=== PATIENT | male | born 1960 | race African-American/Black ===

== ENCOUNTER 2016-09-28 22:09 | Inpatient (IN) ==
[2016-09-28 23:50] LABS: MANUAL DIFF NEEDED? NO
[2016-09-28 23:52] LABS: EOS# 0.28 X1000 (0.0-0.7); EOS% 5.1 % (0.0-10.0); HEMATOCRIT 33.8 % (42.0-52.0); LYMPH# 0.74 X1000 (1.2-3.4); LYMPH% 13.4 % (20.5-51.1); MCH 29.6 PG (27-31); MCHC 32.5 g/dL (33-37); MCV 90.9 FL (81-99); MONO# 0.54 X1000 (0.11-0.59); MONO% 9.8 % (1.7-9.3); MPV 9.7 FL (7.4-10.4); NEUT% 67.7 % (42.2-75.2); PLT 118 X1000 (130-400); RBC 3.72 XMIL (4.7-6.1)
[2016-09-29 00:14] LABS: TOTAL BILIRUBIN 0.38 mg/dL (0.20-1.00); TOTAL PROTEIN 7.5 g/dL (6.3-8.3)
--- NOTE | 2016-09-29 00:19 | ED EKG INTERP ---
This chart was entered by Antonino Phillips Scribe, acting as scribe for Harvinder Lilly MD. EKG Interpretation - EKG Time of EKG reading by physician:: 22:09 EKG Read and Signed by:: Harvinder Lilly EKG Interpretation (*Must complete 3 of following elements*): Abnormal ( Possible left atrial enlargement; Left axis deviation; Prolonged QT) Rate: 79 Rhythm: NSR This chart was documented by the indicated scribe, (Antonino Phillips Scribe) and accurately reflects the services I performed and decisions made by meBrielle Kevin F., MD, as attested by the provider's signature.
--- NOTE | 2016-09-29 00:20 | PROVIDER DOCUMENTATION ---
This chart was entered by Antonino Phillips Scribe, acting as scribe for Alan Deng PA. HPI-Respiratory General - General Chief Complaint: Shortness of Breath Stated Complaint: SOB Time Seen by Provider: 09/28/16 22:34 Source: patient Allergies/Adverse Reactions: Patient Allergies Allergy/AdvReac Type Severity Reaction Status Date / Time No Known Allergies Allergy Verified 09/28/16 22:24 Home Medications: Home Medication List Medication Instructions Recorded Confirmed Last Taken Type Clonidine [Catapres] 0.2 mg PO DAILY 04/14/13 09/28/16 09/28/16 08:00 History Nifedipine [Procardia Xl] 60 mg PO DAILY 04/14/13 09/28/16 09/28/16 08:00 History Omeprazole 20 mg PO DAILY 04/14/13 09/28/16 09/28/16 07:00 History - History of Present Illness-Resp Nature of Presenting Problem: Pt is a 56 yom, dialysis pt, who presents to ER with CC of shortness of breath. Pt reports that he had dialysis today, but is still feeling short of breath. PT reports that he had a paracentesis performed in 2016 and states that his abdomen has become steadily more distended. Pt requesting paracentesis tonight. Quality of Pain: reports: none Severity in ED: reports: mild, moderate Onset/Duration: reports: unsure, just prior to arrival Timing: reports: still present Associated Symptoms: reports: shortness of breath, short of breath. denies: chest pain/soreness, cough, fever/chills, wheezing Similar Symptoms Previously?: Yes Recently seen or treated by another doctor?: Yes Review of Systems - Adult - REVIEW OF SYSTEMS - ADULT Constitutional: denies: chills, fever, fatique, night sweats, weight gain, weight loss Eyes: reports: no symptoms reported Ears, Nose, Mouth & Throat: reports: no symptoms reported Cardiovascular: reports: edema. denies: chest pain, heart murmur, irregular heart rate, orthopnea, palpitations, poor circulation, PND, syncope Respiratory: reports: shortness of breath. denies: chronic cough, cough, dyspnea on exertion, excessive sputum production, hemoptysis, pleurisy, wheezing Gastrointestinal: reports: other (distended). denies: abdominal pain, hematemesis, diarrhea, nausea, vomiting Genitourinary: reports: no symptoms reported Musculoskeletal: reports: no symptoms reported Integumentary: reports: no symptoms reported Neurological: reports: no symptoms reported Psychiatric: reports: no symptoms reported Endocrine: reports: no symptoms reported Hematologic/Lymphatic: reports: no symptoms reported Allergic/Immunologic: reports: no symptoms reported All Other Systems: Reviewed and Negative Past History - Adult - PAST MEDICAL HISTORY-ADULT Review of Records: reports: Nursing Assessment Review, Medications Reviewed - IMMUNIZATION STATUS Childhood Immunizations: See Nurse Assessment Flu Vaccine: See Nurse Assessment Physical Exam-General - PHYSICAL EXAM-ADULT Initial Vital Signs Reviewed: Yes - CONSTITUTIONAL General Appearance: appears well, alert, mild distress - RESPIRATORY Respiratory: chest non-tender, lungs clear, normal breath sounds, no pleuratic chest pain, no respiratory distress, no accessory muscle use. negative: respiratory distress, decreased breath sounds, accessory muscle use, wheezing - CARDIOVASCULAR Cardiovascular: normal peripheral pulses, regular rate, rhythm. negative: bradycardia, tachycardia, irregularly irregular - GASTROINTESTINAL (ABDOMEN) Abdominal Exam: normal bowel sounds, non tender, no organomegaly, no pulsatile mass, distended, other (mild fluid wave). negative: soft - MUSCULOSKELETAL Back Exam: no CVA tenderness, no vertebral tenderness. negative: CVA tenderness , vertebral tenderness Extremity: normal range of motion, non-tender, normal gait, normal inspection, no pedal edema, no calf tenderness, normal capillary refill, pelvis stable. negative: deformity, erythema, inflammation, swelling, tenderness - PSYCHIATRIC Psych/Mental Status: normal mood/affect, normal thought content, normal thought process, oriented x 3 Progress - PLAN OF CARE/RESULTS Progress/Plan/Lab Results: Vital Signs - 8 hr 09/28/16 22:20 09/28/16 23:46 Temperature 98.3 F Pulse Rate 76 70 Respiratory Rate 20 20 Blood Pressure 164/81 153/80 O2 Sat by Pulse Oximetry 94 L 100 Laboratory Results - last 24 hr 09/28/16 09/28/16 23:40 23:40 WBC 5.53 RBC 3.72 L Hgb 11.0 L Hct 33.8 L MCV 90.9 MCH 29.6 MCHC 32.5 L RDW Std Deviation 14.9 H Plt Count 118 L MPV 9.7 Immature Gran % (Auto) 0.0 Neut % (Auto) 67.7 Lymph % (Auto) 13.4 L [place] % (Auto) 9.8 H Eos % (Auto) 5.1 Baso % (Auto) 4.0 H Immature Gran # (Auto) 0.00 Neut # (Auto) 3.75 Lymph # (Auto) 0.74 L [place] # (Auto) 0.54 Eos # (Auto) 0.28 Baso # (Auto) 0.22 H Sodium 143 Potassium 4.0 Chloride 97 L Carbon Dioxide 30 Anion Gap 16 BUN 19 Creatinine 6.9 H Estimated GFR/1.73 m2 10 BUN/Creatinine Ratio 3 Glucose 103 Calculated Osmolality 287 Calcium 9.0 Total Bilirubin 0.38 AST 19 ALT 15 Alkaline Phosphatase 89 Total Protein 7.5 Albumin 4.0 Globulin 3.5 Albumin/Globulin Ratio 1.1 Lipase 28 Orders Category Date Time Status CBC WITH ELECTRONIC DIFF [HEME] Stat Lab 09/28/16 23:40 Completed COMPREHENSIVE METABOLIC PANEL [CHEM] Stat Lab 09/28/16 23:40 Received LIPASE [CHEM] Stat Lab 09/28/16 23:40 Received EKG [EKG] Stat Ther 09/28/16 22:14 Ordered Discussed case c Dr. Lilly. Will discuss c hospitalist for admission. Result Diagrams: 09/28/16 23:40 09/28/16 23:40 - CONSULTS/PCP/HOSPITALIST Notification #1 *Consult/PCP/Hospitalist*: Dr. Marques (Hospitalist) Time Discussed: 00:12 Consult Disposition: Admit Departure - Departure Date of Disposition Decision: 09/29/16 Time of Disposition Decision: 00:18 DIAGNOSIS: Hypoxemia, Shortness of breath Ascites Qualifiers: Ascites type: other type Qualified Code(s): R18.8 - Other ascites Disposition: ADMITTED INPATIENT 09 Certified Medical Emergency: Emergent Condition: Good Referrals and Follow-Ups: Miki Diez MD [Primary Care Provider] - - Critical Care Note This patient required my direct & personal management of CC.: No Attestation - Physician/ LUDA Attestation Patient care was provided by Advanced Practice Provider:: Yes Advanced Practice Provider:: Alan Deng Advanced Practice Provider documentation review:: The Mid-level provider documentation, treatment plan and medical decision making was reviewed by the physician who agrees with all treatment and medical decision making by the MLP. This chart was documented by the david scribe, (Antonino Phillips Scribe) and accurately reflects the services I performed and decisions made by , Alan Deng PA, as attested by the provider's signature.
[2016-09-29] MEDS ORDERED: ZOFRAN IV PRN (02:30)
[2016-09-29] MEDS: ROCEPHIN 1 GM/NS 1 GM/50 ML IVPB IV SCH (04:12)
[2016-09-29 05:58] LABS: HEMOGLOBIN 10.1 g/dL (14.0-18.0); MANUAL DIFF NEEDED? NO; MONO% 11.3 % (1.7-9.3)
--- NOTE | 2016-09-29 06:04 | HISTORY AND PHYSICAL ---
PRIMARY CARE PHYSICIAN: Dr. Miki Diez. CHIEF COMPLAINT: Shortness of breath, not feeling well, and abdominal distention. HISTORY OF PRESENT ILLNESS: This is a 56-year-old, -Maldivian male, with past medical history of end-stage renal disease on dialysis and uncontrolled hypertension, who presented to the Emergency Department complaining of shortness of breath. He reports that this symptom has been going on for approximately 3-4 days. He denies any fever or chills. He also noticed more and more abdominal distention. He went to see his primary care doctor 2 days ago, but he was still feeling not okay. Today, he reports that the abdominal distention was getting worse. We are called for admission because this patient was requesting paracentesis for this abdominal distention that he had 2 years ago when they removed 32 ounces of ascitic fluid , according to the patient. The patient is being admitted for further evaluation and treatment. PAST MEDICAL HISTORY: 1. End-stage renal disease on hemodialysis. 2. Uncontrolled hypertension. PAST SURGICAL HISTORY: 1. Unremarkable. ALLERGIES: Patient is not allergic to anything. SOCIAL HISTORY: He denies drinking alcohol, smoking tobacco, or using illicit drugs. REVIEW OF SYSTEMS: Eleven symptoms were reviewed and no symptoms . PHYSICAL EXAMINATION: VITAL SIGNS: Temperature 98.3 degrees, heart rate 70, respiratory rate 20, blood pressure 153/80. O2 saturation 100% on room air. GENERAL EXAMINATION: This is a 56-year-old, -Maldivian male, lying in bed , in no acute distress. HEENT: Head is normocephalic and atraumatic. Anicteric sclerae and pale conjunctivae. Mucous membranes moist. NECK: Supple. No JVD noted. No carotid bruits. No lymphadenopathy. No thyromegaly. CARDIOVASCULAR: S1 and S2 heard. No murmurs, gallops, or rubs. Regular rate and rhythm. RESPIRATORY: Clear bilaterally to auscultation. No work of breathing or using accessory muscles. ABDOMEN: Soft, markedly distended, compatible with ascites. Bowel sounds very distant but present. No organomegaly noted. EXTREMITIES: No clubbing, cyanosis, or edema. Peripheral pulses present in both legs. NEUROLOGICAL: Patient is alert and oriented x3. Moves 4 extremities. Cranial nerves 2-12 grossly normal. LABORATORY DATA: White cell count 5.53, hemoglobin 11.0, hematocrit 33.8, platelets 118,000. BMP unremarkable. Creatinine 6.9. The liver function tests are okay. ASSESSMENT AND PLAN: 1. Abdominal distention/ascites. This patient has definitely ascites on physical examination. So, at this point, I prefer to consult Dr. Zachary Grimes to see what else we can do for this patient. There is no clear reason why this patient has ascites. The patient denies drinking alcohol. We are going to check hepatitis profile to see if there is any infection going on now. We will consult the wellness program manager for further workup. 2. Shortness of breath. I think this is most probably because of the ascites is pushing the diaphragm causing this patient's shortness of breath. In any case, I prefer to do an ultrasound echocardiogram considering he has uncontrolled hypertension. We will go from there. Another option is pneumonia. Will see what CT of chest shows 3. Uncontrolled hypertension. We will continue home medications. Further recommendations to follow according to the clinical situation of the patient. cc: Pal Crowley MD MTDD
[2016-09-29 06:08] LABS: ALBUMIN 3.6 g/dL (3.5-5.0); CALCIUM 8.8 mg/dL (8.8-10.2); POTASSIUM 4.1 mmol/L (3.5-5.1); TOTAL BILIRUBIN 0.42 mg/dL (0.20-1.00); TOTAL PROTEIN 7.1 g/dL (6.3-8.3)
[2016-09-29] MEDS: PRILOSEC PO SCH (06:17)
[2016-09-29] MEDS: PROCARDIA ER PO SCH (08:35)
[2016-09-29] MEDS: HEPARIN SUBQ SCH ×2 (08:36→21:42)
[2016-09-29] MEDS: CATAPRES PO SCH (08:36)
[2016-09-29] MEDS ORDERED: PRILOSEC PO SCH (09:00)
[2016-09-29 09:20] LABS: BASO% 0.5 % (0.0-0.8); EOS# 0.17 X1000 (0.0-0.7); EOS% 3.9 % (0.0-10.0); HEMATOCRIT 30.9 % (42.0-52.0); LYMPH# 0.49 X1000 (1.2-3.4); LYMPH% 11.3 % (20.5-51.1); MCH 29.4 PG (27-31); MCHC 32.7 g/dL (33-37); MCV 89.8 FL (81-99); MONO# 0.49 X1000 (0.11-0.59); MPV 9.9 FL (7.4-10.4); PLT 135 X1000 (130-400); RBC 3.44 XMIL (4.7-6.1)
--- NOTE | 2016-09-29 10:09 | Diag Imaging Result Doc PS360 ---
EXAM: THORAX/ABDOMEN/PELVIS W/O CONT INDICATION: sob, worsening ascites TECHNIQUE: Dose reduction protocol was used. COMPARISON: CT abdomen and pelvis dated 04/16/2013. No prior dedicated CT chest is available for comparison. FINDINGS: CHEST: There is a left upper lobe calcified granuloma near the apex. There is a small right pleural effusion and a trace left effusion. There is airspace infiltrate in the right lower lobe near the base suggesting pneumonia. There is very mild thickened interstitial markings suggesting minimal edema. There is marked cardiomegaly. There are calcified mediastinal and left hilar lymph nodes indicating prior granulomatous disease. There are several other mildly prominent but nonspecific noncalcified mediastinal lymph nodes. There is extensive thoracic aortic atherosclerotic calcification and there is ectasia and aneurysmal dilation of the thoracic aorta, most prominent at the aortic arch where it measures up to 4.3 cm in diameter. ABDOMEN/PELVIS: There are multiple calcified granulomata in the spleen and a few in the liver. The liver and spleen are grossly unremarkable, otherwise. The gallbladder, adrenal glands, and pancreas are unremarkable. Both kidneys are atrophic. There is a small nonobstructing intrarenal stone on the left. There are a few couple punctate stones versus atherosclerotic calcification associated with the right kidney. There are no obstructing stones and there is no hydronephrosis. There are a few small cyst density foci involving both kidneys. The urinary bladder is nondistended. There is no evidence of appendicitis. There is mild sigmoid colonic diverticulosis with no evidence of diverticulitis. The remainder of the GI tract is essentially unremarkable. There is no ascites and no free abdominal gas. There is extensive aortoiliac atherosclerotic calcification with calcification of several of the major branches of the aorta. There is aneurysmal dilation of the suprarenal and infrarenal abdominal aorta. The superior aneurysm is stable measuring up to 4.1 cm in diameter. The infrarenal aneurysm is larger than the previous study. It measures 3.8 x 3.6 cm (3.3 x 3.3 cm previously). There is aneurysmal dilation of both common iliac arteries, more prominent on the left. The left common iliac aneurysm measures up to 2.6 cm. These iliac aneurysms are approximately stable. There are bilateral common femoral artery aneurysms, largest on the left. They are approximately stable with the left femoral artery aneurysm measuring up to 2.2 cm in diameter. IMPRESSION: 1.Mild consolidation in the right lower lobe near the base suggesting likely mild pneumonia. 2.Small right pleural effusion and trace left effusion. 3.Probably very mild interstitial edema. 4.Stable marked cardiomegaly. 5.Nonspecific mild mediastinal lymphadenopathy. 6.Aneurysmal dilation involving the thoracic aorta, abdominal aorta, common iliac arteries, and common femoral arteries as described. The infrarenal abdominal aortic aneurysm is slightly larger than the previous study. 7.No ascites is appreciated. 8.Other incidental/nonacute findings detailed above but no definite acute pathology involving the abdomen or pelvis. Electronically signed by Ajith Mccracken 09/29/2016 10:07 AM
[2016-09-29] MEDS ORDERED: NS 2,000 ML ONE (11:18)
[2016-09-29] MEDS ORDERED: HEPARIN ONE (11:18)
[2016-09-29] MEDS ORDERED: HEPARIN IV PRN (11:27)
[2016-09-29] MEDS ORDERED: NS 2,000 ML MISC PRN (11:27)
[2016-09-29] MEDS ORDERED: TIGHT: 0.2 ML/HR MISC PRN (11:27)
--- NOTE | 2016-09-29 12:33 | PROGRESS NOTE ---
DATE: 09/29/2016 Mr. Claudy Crain has a history of uncontrolled hypertension and has renal failure. He was admitted last night with abdominal pain and distention. Clinically it looks like he does have ascites. CT scan of the abdomen was performed, which revealed the abdomen and chest with stable mild cardiomegaly, mild consolidation in the right lower lobe suggesting pneumonia, slight pleural effusion on the right side, and probably very mild interstitial edema. The abdomen and pelvis were okay. The liver and spleen are unremarkable. The pancreas and gallbladder are normal. Both kidneys are atrophic. There is a nonobstructive stone on the left side. He had some ascites drawn about 2 years ago, however, it does not appear like much ascites at this time on the CT scan. We will continue to follow him closely. -6 cc: MD Miki Bacon MD
--- NOTE | 2016-09-29 15:31 | CONSULTATION ---
DATE OF CONSULTATION: 09/29/2016 NEPHROLOGY CONSULTATION: REASON FOR CONSULTATION: Assistance with management. HISTORY OF PRESENT ILLNESS: Mr. Crain is a 56-year-old, black man, who is well known to me. He has end-stage kidney disease secondary to hypertension. He was seen this past week by me and had no complaints during his treatment. He states that over the last 3 days he has had increasing shortness of breath with a dry cough and low-grade fever at home. He saw Dr. Diez on Saturday and had a chest x-ray but has not had any followup on that. His symptoms have continued such that last night he could not lie down in bed without being short of breath. His significant other uses home oxygen and he made use of that at home and then came to the emergency room. Today, he is symptom-free but he is wearing oxygen. No more fever that he is aware of. He is not aware of any weight loss. He states he had less than 1 kg above his dry weight when he attended his treatment on yesterday. No chest pain throughout. No diaphoresis, nausea, vomiting. His appetite has been normal. He does work in the heat. PAST MEDICAL HISTORY: As above. He also has a history of an abdominal aortic aneurysm. HOME MEDICATIONS: Include clonidine, omeprazole, nifedipine, atorvastatin, sevelamer. ALLERGIES: None. SOCIAL HISTORY: Noncontributory. FAMILY HISTORY: Noncontributory. PHYSICAL EXAMINATION: Vital Signs: Blood pressure 166/84, heart rate 81, respirations 16, afebrile. Generally: He is a healthy-appearing man in no acute distress. He has supplemental oxygen, lying at 30 degrees. Skin: Warm and dry without rashes or other lesions. HEENT: Pupils are equal and round. Conjunctivae are pink and moist. Oropharynx is clear with normal tongue, normal dentition. Neck: Supple. Trachea is midline. Neck vein distention is present. Heart: PMI is enlarged. Auscultation demonstrates S4 gallop rhythm, no murmurs. Lungs: Have equal breath sounds. Few crackles in the right base only. No retractions, accessory muscle use, wheezes. Abdomen: Soft, nontender. No organomegaly or masses. Extremities: No edema, clubbing or cyanosis. DIAGNOSTIC DATA: Laboratory data and radiology data reviewed. IMPRESSION: 1. Shortness of breath. His chest CT suggests he has pneumonia and he is receiving IV antibiotics. There is also a suggestion of pulmonary edema, and he has ascites. Certainly his physical exam suggests volume expansion. As such, we will use hemofiltration today to lower his dry weight and reassess his symptoms thereafter. 2. Abdominal aortic aneurysm. Does not meet criteria for surgical intervention. 3. Hypertension above target. We will reassess after his volume status has been addressed. 4. Electrolytes/acid base in target. 5. Anemia. We will continue erythropoietin. cc: MD Miki Hsieh MD
--- NOTE | 2016-09-29 15:46 | CONSULTATION ---
DATE OF CONSULTATION: 09/29/2016 I came to see the patient for a consult to evaluate him for ascites. Unfortunately the patient has been gone for hemodialysis but on review of his chart and imaging reports it appears that the patient does not have any ascites and the request was to evaluate for new onset ascites. Since he does not have any ascites there is not much to address from a GI point of view. However, I will be available if needed. cc: MD Miki Knott MD
--- NOTE | 2016-09-29 16:31 | CONSULTATION ---
DATE OF CONSULTATION: 09/29/2016 REASON FOR CONSULTATION: Abdominal distention and multiple aneurysms. HISTORY OF PRESENT ILLNESS: This is a 56-year-old male who has known multiple aortic and lower extremity aneurysms who is followed periodically by Dr. Gutierrez. In addition he experienced increasing shortness of breath over the last 3 or 4 days with fever up to 101 and productive cough. He felt like his abdomen was distended and he felt like he might have fluid overload such he has had in the past. He even had a paracentesis years ago. He denies abdominal pain, diarrhea, constipation, back pain. No exacerbating or relieving factors. PAST MEDICAL HISTORY: End-stage renal disease. Uncontrolled hypertension. PAST SURGICAL HISTORY: None. ALLERGIES: No known drug allergies. SOCIAL HISTORY: He denies alcohol, tobacco or illicit drug use. HOME MEDICATIONS: Catapres, omeprazole, Procardia, Lipitor, and Renvela. REVIEW OF SYSTEMS: Ten systems reviewed and negative except as noted above. PHYSICAL EXAMINATION: Vital Signs: Temperature 98.9 degrees, pulse 81, respirations 16, blood pressure 166/84, O2 saturation 100%. General: He is a well-developed, well-nourished male in no distress who looks stated age. HEENT: Normocephalic, atraumatic. Extraocular muscles intact. Pupils equal, round, reactive to light. Sclerae anicteric. Moist mucous membranes. Hearing grossly normal. Neck: Supple. No thyromegaly. CV: Regular rate and rhythm. Respiratory: Bilateral breath sounds. No increased work of breathing. GI: Soft, nontender, nondistended. No organomegaly or mass. I do not feel any aneurysm. He does have somewhat of a large fatty abdomen. Extremities: No clubbing, cyanosis, or edema. Skin: Warm and dry. No rash. Musculoskeletal: Moves all extremities equally and well. LABORATORY: White blood cell count 4.3, hemoglobin 10.1, platelet count 135,000. Metabolic profile reviewed and unremarkable. IMAGING: CT of the chest, abdomen and pelvis was reviewed by me. It does show a stable thoracic aortic aneurysm, a slightly enlarged super renal abdominal aortic aneurysm which is less than 4 cm. His infrarenal abdominal aortic aneurysm is stable and less than 4 cm. He has bilateral stable iliac artery aneurysms. There is no appreciable ascites. He does have some mild consolidation of the right lower lobe suggesting mild pneumonia and small right pleural effusion and trace left pleural effusion. ASSESSMENT/PLAN: A 56-year-old male with what looks like pneumonia as well as multiple thoracic and abdominal aneurysms. There is some enlargement of the suprarenal aortic aneurysm. I think Dr. Gutierrez can re-evaluate him next week but I would not intervene urgently at this time. cc: MD Miki Granda MD
[2016-09-30] MEDS: ROCEPHIN 1 GM/NS 1 GM/50 ML IVPB IV SCH (03:21)
[2016-09-30 04:40] LABS: ALLEN TEST YES; BE 6.9 mmoll (-3.0-3.0); BLOOD TYPE ARTERIAL; DRAW SITE R RADIAL; METHB 1.5 % (0.0-1.5); PCO2(98.6) 43 mmHg (35-45); PO2(98.6) 63 mmHg (60-100); SAMPLE BLOOD; SAO2 93.9 % (95.0-100.0); THB 10.2 g/dL (11.5-17.4); pH(98.6) 7.47 (7.35-7.45)
[2016-09-30 04:41] LABS: MODALITY ROOM AIR
[2016-09-30 05:44] LABS: MANUAL DIFF NEEDED? NO
[2016-09-30 05:49] LABS: BASO% 0.7 % (0.0-0.8); EOS# 0.19 X1000 (0.0-0.7); EOS% 3.3 % (0.0-10.0); HEMATOCRIT 30.1 % (42.0-52.0); HEMOGLOBIN 9.9 g/dL (14.0-18.0); LYMPH# 0.67 X1000 (1.2-3.4); LYMPH% 11.6 % (20.5-51.1); MCH 29.1 PG (27-31); MCHC 32.9 g/dL (33-37); MCV 88.5 FL (81-99); MONO# 0.59 X1000 (0.11-0.59); MONO% 10.2 % (1.7-9.3); MPV 9.8 FL (7.4-10.4); NEUT% 74.2 % (42.2-75.2); PLT 120 X1000 (130-400)
[2016-09-30] MEDS: PRILOSEC PO SCH (06:08)
[2016-09-30 06:38] LABS: ALBUMIN 3.5 g/dL (3.5-5.0); CALCIUM 9.1 mg/dL (8.8-10.2); POTASSIUM 3.9 mmol/L (3.5-5.1); TOTAL BILIRUBIN 0.39 mg/dL (0.20-1.00); TOTAL PROTEIN 6.9 g/dL (6.3-8.3)
--- NOTE | 2016-09-30 09:24 | PROGRESS NOTE ---
DATE: 09/30/2016 SUBJECTIVE: The patient has no abdominal pain or back pain. OBJECTIVE: Vital Signs: He is afebrile. Vital signs are stable. General: He is alert and oriented x4. No acute distress. GI: Soft, nontender, nondistended. Laboratory: Hemoglobin 10, hematocrit 30. This is stable. ASSESSMENT/PLAN: A 56-year-old male with known chronic intrathoracic and intra-abdominal aortic aneurysm as well as bilateral iliac aneurysms. There is some increase in the suprarenal abdominal aortic aneurysm. Dr. Gutierrez will re-evaluate this, this week. He is currently being treated for pneumonia. There are no acute surgical indications this weekend. cc: MD Miki Granda MD
[2016-09-30] MEDS: PROCARDIA ER PO SCH (09:30)
[2016-09-30] MEDS: CATAPRES PO SCH (09:30)
[2016-09-30] MEDS: HEPARIN SUBQ SCH ×2 (09:30→20:39)
--- NOTE | 2016-09-30 10:35 | PROGRESS NOTE ---
DATE: 09/30/2016 Mr. Crain is feeling better. His abdomen is soft, nontender. He had dialysis done yesterday which nguyễn about 4 L of fluid. His arterial blood gases are okay. Hemoglobin is 9.9, hematocrit 30.1, white count is 5.8. BUN is 30, creatinine 9.5. He has been recovering from pneumonia. He has multiple aneurysms. Surgical consult was obtained. No acute surgical intervention necessary at the present time. He will be evaluated by Dr. Gutierrez. -2 cc: MD Miki Bacon MD
--- NOTE | 2016-09-30 13:53 | ECHO REPORT ---
ORDER DATE: 09/29/2016 ECHOCARDIOGRAPHIC MEASUREMENTS: 1. Interventricular septum 1.5. Left ventricular posterior wall 1.5. Diastolic diameter 4.9. Left atrium 4.9. Aorta 3.8. Aortic valve leaflets were sclerosed, trileaflet opening normally. Pulmonic valve was normal. 2. Mitral valve was normal. There is mitral annular calcification. There is biatrial enlargement. 3. There is mild mitral regurgitation. 4. There is moderate eccentric tricuspid regurgitation. Peak velocity across the tricuspid valve was 4 m/sec. There is pulmonary arterial hypertension. Pulmonary artery systolic pressure of 86 mmHg, severe pulmonary arterial hypertension. 5. Peak velocity across aortic valve less than 2 m/sec. There is no aortic stenosis. There is aortic sclerosis associated with trace aortic regurgitation. 6. Normal left ventricular cavity size. Estimated ejection fraction of 55%-60%. 7. There is no pericardial effusion or obvious intracardiac mass or thrombus seen. cc: MD Pal Sorensen MD Bharat K. Vakharia, MD
[2016-10-01] MEDS: ROCEPHIN 1 GM/NS 1 GM/50 ML IVPB IV SCH (04:21)
--- NOTE | 2016-10-01 06:22 | EKG Report ---
Test Performed on : 09/28/2016 10:09:36 PM Test Reason : renal failure Blood Pressure : / mmHG Vent. Rate : 079 BPM Atrial Rate : 079 BPM P-R Int : 166 ms QRS Dur : 096 ms QT Int : 424 ms P-R-T Axes : 066 -44 061 degrees QTc Int : 486 ms Normal sinus rhythm. Possible Left atrial enlargement Left axis deviation Prolonged QT Abnormal ECG When compared with ECG of 14-APR-2013 20:57, Nonspecific T wave abnormality no longer evident in Lateral leads Unconfirmed Result
[2016-10-01] MEDS: PRILOSEC PO SCH (06:48)
[2016-10-01 07:13] LABS: ALBUMIN 3.5 g/dL (3.5-5.0); CALCIUM 8.6 mg/dL (8.8-10.2); POTASSIUM 4.3 mmol/L (3.5-5.1); TOTAL BILIRUBIN 0.38 mg/dL (0.20-1.00); TOTAL PROTEIN 7.2 g/dL (6.3-8.3)
--- NOTE | 2016-10-01 07:30 | PROGRESS NOTE ---
DATE: 10/01/2016 SUBJECTIVE: Mr. Crain is doing better. His abdominal pain, nausea, vomiting improved. Denied any chest pain. No unusual cough or expectoration. No fever or chills. No diarrhea. Patient admitted with shortness of breath. He also had vague abdominal pain, nausea, and vomiting. Workup in the emergency room did reveal questionable pneumonia, questionable ascites, and thoracic and abdominal aortic aneurysm. CT scan ruled out ascites. There was infiltrate in the lung. We are waiting for Dr. Gutierrez's evaluation for his ascites. Clinically, the patient is feeling much better. The patient had dialysis done. The patient was aware of his aneurysm. Admission history and physical, surgical consultation, and Nephrology consultation noted. OBJECTIVE: Vital Signs: Noted. Neck: Supple. No JVD. Lungs: Bibasilar crepitations. Heart: A 2 to 3/6 systolic murmur at the apex. Abdomen: Soft, globular. Bowel sounds present. Extremities: No cyanosis, clubbing. No acute DVT. DIGITAL ASSET MANAGER: Alert, awake, able to move all 4 limbs. CONSIDERATION: 1. Uncontrolled hypertension, doing better. 2. Abdominal aortic and thoracic aortic aneurysm. 3. Gastritis. 4. Pneumonitis. PLAN: Overall, the patient is doing better. Will continue current treatment. Close observation. Overall plan discussed with the patient, and he is in agreement. Lab data done yesterday reviewed. Patient is nonsmoker. Discussed the importance of proper control of hypertension and tachycardia. cc: Miki Diez MD
[2016-10-01] MEDS ORDERED: HEPARIN ONE (07:38)
[2016-10-01] MEDS ORDERED: NS 2,000 ML ONE (07:38)
[2016-10-01] MEDS ORDERED: TIGHT: 0.2 ML/HR MISC PRN (07:40)
[2016-10-01] MEDS ORDERED: HEPARIN IV PRN (07:40)
[2016-10-01] MEDS ORDERED: NS 2,000 ML MISC PRN (07:40)
[2016-10-01] MEDS ORDERED: EPOGEN SUBQ SCH (09:00)
--- NOTE | 2016-10-01 09:41 | PROGRESS NOTE ---
DATE: 10/01/2016 SUBJECTIVE: Patient is sitting up on the side of the bed, eating breakfast. He states that his breathing is much better. He did not wear his oxygen for most of the night last night. OBJECTIVE: Vital Signs: Temperature 98.5 degrees, pulse 90, respiratory rate 16, blood pressure 150/87, O2 saturation 100% on 2 L nasal cannula. It was 96% on room air. General: This is a middle-aged gentleman sitting up on the side of the bed. Awake, alert, in no acute distress. HEENT: Normocephalic, atraumatic. Oral mucosa is moist. DOTTY. Conjunctivae pink. Neck: Supple. Perhaps trace JVD in the upright position. Cardiovascular: Regular rate and rhythm. Has a gallop but no murmur. Pulmonary: He has equal excursion. There is no increased work of breathing noted today. He is on 2 L nasal cannula currently. Abdomen: Soft with positive bowel sounds. : Not inspected. He has minimal void with hemodialysis assist. Extremities: No clubbing, cyanosis, or edema. Integumentary: Skin is warm and dry. He has an AV fistula noted to the left upper extremity. Lab Data: WBC of 5.8, hemoglobin 9.9, hematocrit 30.1. Sodium 139, potassium 4.3, CO2 of 29, creatinine 12, calcium 8.6. ASSESSMENT AND PLAN: 1. End-stage renal disease management. Today is his routine dialysis day. We challenged his dry weight on his last dialysis treatment. We were able to reduce his dry weight by 4 L. We will continue this new dry weight. The patient does have a history over time of his weight fluctuating, especially in the summer months. 2. Shortness of breath. See #1. We will go ahead and recheck his chest x-ray today. The patient states that he is not requiring oxygen. We will have respiratory check his O2 saturations off oxygen and then ambulating. CXR no pulmonary edema. rg 3. Abdominal aortic aneurysm. Followed by primary and surgery. 4. Electrolytes, acceptable. 5. Fluid volume. See #1. Seen, data reviewed, discussed with Brandie Rodriguez on 10/01/16. I agree with the above assessment and plan of care. rg Dictated by YASIR Turner for Max Dailey MD cc: MD Miki Hsieh MD [facility] CENTERMariana
[2016-10-01 10:24] LABS: HEPATITIS PROFILE ACUTE SEE COMMENTS
--- NOTE | 2016-10-01 13:08 | Diag Imaging Result Doc PS360 ---
EXAM: CHEST-2 VIEWS HISTORY: pl eff TECHNIQUE: COMPARISON: 09/26/2016 FINDINGS: The lungs are well expanded. The heart is not enlarged. The vessels are not distended. There are no infiltrates. No pleural effusions. There is a calcified granuloma in the left apex as well as a calcified left hilar lymph nodes. IMPRESSION: No pleural effusions. Electronically signed by Jose Villaseñor 10/01/2016 1:06 PM
[2016-10-01] MEDS: PROCARDIA ER PO SCH (13:41)
[2016-10-01] MEDS: HEPARIN SUBQ SCH ×2 (13:41→21:40)
[2016-10-01] MEDS: CATAPRES PO SCH (13:41)
[2016-10-02] MEDS: ROCEPHIN 1 GM/NS 1 GM/50 ML IVPB IV SCH (04:05)
[2016-10-02] MEDS: PRILOSEC PO SCH (06:18)
[2016-10-02 07:38] VITALS: BP 155/99
[2016-10-02] MEDS: CATAPRES PO SCH (08:04)
[2016-10-02] MEDS: PROCARDIA ER PO SCH (08:04)
[2016-10-02] MEDS: HEPARIN SUBQ SCH (08:04)
--- NOTE | 2016-10-02 09:41 | DISCHARGE SUMMARY ---
ADMISSION DATE: 09/29/2016 DISCHARGE DATE: 10/02/2016 FINAL DISCHARGE DIAGNOSES: 1. Pneumonitis. 2. Pleural effusion. 3. Emergent hypertension. 4. End-stage renal disease. 5. Thoracic aortic aneurysm. 6. Abdominal aortic aneurysm. 7. Gastritis. HISTORY OF PRESENT ILLNESS: Mr. Crain is a 56-year-old patient admitted with shortness of breath, abdominal pain, cough, chest congestion. I evaluated patient in the office. I did workup in the form of chest x-ray and lab data. Chest x-ray did reveal cardiomegaly, some pleural effusion. Negative for pneumonia. The patient was not getting better. He had abdominal distention. He was concerned about ascites. Came to the ER. Evaluated by ER physician. Workup in the ER did reveal possible pneumonia. The patient had CT scan done which did reveal thoracic and abdominal aortic aneurysm. The patient was admitted for further care. Treated with IV antibiotics, pulmonary toilet, symptomatic treatment, his clinical condition stabilized and improved. The patient underwent hemodialysis. His shortness of breath improved. Chest x-ray showed improvement. Overall patient is doing much better, eager to go home. Plan was to get a consultation with Dr. Gutierrez, but neuropsychiatrist and myself think we can get Dr. Gutierrez's consultation as an outpatient. Advised patient to keep a close eye on his blood pressure and heart rate, take medication regularly. The patient is ambulating well in the room and hallway. OBJECTIVE: Vital Signs: Vital signs noted. Neck: Supple. No JVD. Lungs: Bilateral good air entry present. CVS: S1 and S2 heard. Abdomen: Soft, globular. Bowel sounds present. Extremities: No cyanosis, clubbing. No acute DVT. TALENT MANAGEMENT SPECIALIST: Alert, awake able to move all 4 limbs. DIAGNOSTIC STUDIES: Chest x-ray done yesterday did show improvement. There was no pneumonia. Echocardiogram revealed ejection fraction 55-60%. Mild mitral regurgitation, tricuspid regurgitation. CT scan of the chest, abdomen and pelvis did reveal mild consolidation in the right lower lobe, cardiomegaly, small right pleural effusion. Mild interstitial edema and there is more dilatation involving thoracic aorta, abdominal aorta, common iliac artery and common femoral arteries as described. No ascites. Advised patient to have followup with Dr. Gutierrez as an outpatient. Follow up with me in a week's time. LAB DATA: Revealed last hemoglobin 9.9, hematocrit 30.1, platelet count 120,000, WBC count 5.8. Electrolytes done yesterday. The creatinine was 12, BUN 43. Patient underwent dialysis. Potassium was 4.3. Hepatitis panel was negative. Overall, patient received maximum benefit of hospitalization. I am planning to discharge him home on Ceftin 500 mg twice a day. Continue rest of the medicine. Monitor blood pressure and heart rate closely. Continue dialysis. cc: Miki Diez MD
--- NOTE | 2016-10-02 12:43 | PROGRESS NOTE ---
DATE: 10/02/2016 SUBJECTIVE: Patient is sitting up in a chair eating breakfast. He states that he is to be discharged later on today. Underwent dialysis yesterday with no issues. He is now about 8 L below his previous dry weight total. OBJECTIVE: Vital Signs: Temperature 98.1 degrees, pulse 86, respiratory rate 16, blood pressure 146/86. Intake 800 mL. Output 2.6 L. General: This is a middle-aged gentleman sitting up in a chair in no acute distress. He is awake, alert, oriented x4. HEENT: Normocephalic, atraumatic. DOTTY, conjunctivae pink. Oral mucosa moist. Neck: Supple. There is no JVD noted. Cardiovascular: Regular rate and rhythm. There is no murmur or gallop. Pulmonary: He has equal excursion. He is clear bilaterally with no increased work of breathing. He is on room air. Abdomen: Soft, with positive bowel sounds. : Not inspected. He has minimal void with hemodialysis assist. Extremities: There is no clubbing, cyanosis or edema today. Integumentary: Skin is warm and dry without rash or lesion. LAB DATA: I have no new labs today. IMAGING: His chest x-ray yesterday after dialysis showed no pleural effusion. ASSESSMENT AND PLAN: 1. End-stage renal disease management. We again challenged his dry weight yesterday. We have him down to about 8 L below his original dry weight. I did discuss with the patient the importance of having his dry weight challenged in the outpatient setting if he comes into the clinic with no fluid on. He stated that he would continue to do this. The patient again does have a history of his weight fluctuating quite a bit with him having weight loss, in the summer when he being more active and again rising again in the winter. We will continue to monitor and treat his volume as needed. 2. Shortness of breath. This has resolved. 3. Chest x-ray was clear yesterday. 4. Abdominal aortic aneurysm. Followed by primary and surgery. He will be seen as an outpatient. 5. Electrolytes, acid-base balance, anemia. I have no new labs. These are stable yesterday. Seen, data reviewed, discussed with Brandie Rodriguez on 10/02/16. I agree with the above assessment and plan of care. rg Dictated by YASIR Turner for Max Dailey MD cc: MD Miki Hsieh MD [facility]
== END 2016-10-02 11:37 | disposition home or self-care (01) ==
LOC: ED 22:09 → 4N 09-29 01:42 → SUATTDRO 09-29 01:42 → 4N 09-29 02:16
PROVIDERS: ADMIT Internal Medicine; ATTEND Internal Medicine